=== PATIENT | female | born 1935 | race Caucasian/White ===

== ENCOUNTER 2019-04-17 09:15 | Observation (INO) ==
[2019-04-17] MEDS ORDERED: ASPIRIN 325 MG TABLET PO STA (09:34)
[2019-04-17 10:01] LABS: Basophils % 0.4 % (0.0-0.8); Eosinophils # 0.1 10*3/uL (0.0-0.87); Eosinophils % 1.5 % (0.00-10.9); Hematocrit 40.3 VOL% (35.7-47.0); Hemoglobin 13.2 GM/DL (12.0-16.0); Immature Granulocytes % 0.6 %; Immature Granulocytes Absolute 0.04 #; Lymphocytes # 1.4 10*3/uL (1.4-4.0); Lymphocytes % 21.2 % (21.3-54.2); Mean Corpuscular HGB Conc 32.8 GM/DL (32-36); Mean Corpuscular Volume 96.9 FL (87-102); Mean Platelet Volume 10.3 FL (9.6-12.0); Monocytes % 12.6 % (1.7-12.7); Neutrophils % 63.7 % (38.7-73.9); Platelet Count 283 T/CUMM (130-400); Red Blood Count 4.16 MC/CUMM (3.8-5.5); Red Cell Distribution Width 15.3 % (9.3-17.3); White Blood Count 6.7 T/CUMM (4-12)
[2019-04-17 10:29] LABS: Calcium 9.2 MG/DL (8.5-10.1); Osmolality,Calculated 283.3 MOS/KG (273-304)
[2019-04-17] MEDS ORDERED: diphenhydrAMINE CAP 25 MG CAPSULE PO PRN (11:23)
[2019-04-17] MEDS ORDERED: guaiFENesin/DM ER 600-30 MG TABLET PO PRN (11:23)
[2019-04-17] MEDS ORDERED: ONDANSETRON 4 MG/2 ML VIAL IV PRN (11:23)
[2019-04-17] MEDS ORDERED: PROMETHAZINE 25 MG/1 ML VIAL IM PRN (11:23)
[2019-04-17] MEDS ORDERED: ZALEPLON 5 MG CAPSULE PO PRN (11:23)
[2019-04-17] MEDS ORDERED: TEMAZEPAM 15 MG CAPSULE PO PRN (11:26)
[2019-04-17] MEDS ORDERED: hydrALAZINE 20 MG/1 ML VIAL IV STA (11:42)
[2019-04-17] MEDS: HEPARIN 5,000 UNIT/1 ML VIAL SUBCUT SCH ×2 (12:02→22:11)
[2019-04-17 14:15] LABS: Apearance,Urine Slightly Hazy (Clear); Bilirubin,Urine Negative (Negative); Blood, Urine Negative (Negative); Glucose,Urine (UA) Negative (Negative); Ketones,Urine Negative (Negative); Mucus,Urine Occasional /LPF (Occasional); Nitrite,Urine Negative (Negative); Protein,Urine Negative; RBC,Urine 2 /HPF (0-4); Renal Epithelial Cells,Urine Occasional /HPF (<1); Squamous Epithelial Cell,Urine Occasional /HPF (0-10); Urine Color Yellow (Yellow); Urine Specific Gravity 1.014 (1.001-1.035); Urine Urobilinogen < 2.0 EU/DL (0.2-1.0); WBC,Urine 15 /HPF (0-6)
[2019-04-17] MEDS ORDERED: cefTRIAXone 1,000 MG in SYRINGE 1 EACH IV SCH (16:30)
[2019-04-17] MEDS ORDERED: MAGNESIUM SULF RIDER 2 GM in PREMIX 1 EACH IV PRN ×2 (16:31)
[2019-04-17] MEDS ORDERED: MAGNESIUM SULF RIDER 4 GM in PREMIX 1 EACH IV PRN ×2 (16:31)
[2019-04-17 17:08] LABS: Troponin I < 0.015 NG/ML (0.00-0.045)
[2019-04-17] MEDS: BUDESONIDE 0.25 MG/2 ML NEB RESP TX SCH (19:02)
[2019-04-17 19:20] LABS: Troponin I < 0.015 NG/ML (0.00-0.045)
[2019-04-17] MEDS ORDERED: ATORVASTATIN 10 MG TABLET PO SCH (21:00)
[2019-04-17] MEDS ORDERED: amLODIPine 2.5 MG TABLET PO SCH (21:00)
[2019-04-17] MEDS: DOCUSATE SODIUM 100 MG CAPSULE PO SCH (22:14)
[2019-04-17] MEDS: GABAPENTIN 300 MG CAPSULE PO SCH (22:14)
[2019-04-18 04:51] LABS: Basophils # 0.1 10*3/uL (0.0-0.2); Basophils % 0.7 % (0.0-0.8); Eosinophils # 0.1 10*3/uL (0.0-0.87); Eosinophils % 1.4 % (0.00-10.9); Hematocrit 37.2 VOL% (35.7-47.0); Hemoglobin 12.1 GM/DL (12.0-16.0); Immature Granulocytes % 0.7 %; Immature Granulocytes Absolute 0.05 #; Lymphocytes % 27.3 % (21.3-54.2); Mean Corpuscular HGB Conc 32.5 GM/DL (32-36); Mean Corpuscular Volume 97.4 FL (87-102); Monocytes % 11.1 % (1.7-12.7); Neutrophils % 58.8 % (38.7-73.9); Platelet Count 266 T/CUMM (130-400); Red Blood Count 3.82 MC/CUMM (3.8-5.5); Red Cell Distribution Width 15.4 % (9.3-17.3); White Blood Count 7.2 T/CUMM (4-12)
[2019-04-18 05:26] LABS: Free T4 (Free Thyroxine) 1.15 NG/DL (0.76-1.46)
[2019-04-18 05:28] LABS: Alanine Aminotransferase 16 U/L (13-56); Alkaline Phosphatase 58 U/L (45-117); Aspartate Amino Transferase 17 U/L (0-37); Bilirubin,Total < 0.39 MG/DL (0.2-1.0); Blood Urea Nitrogen 19 MG/DL (7-18); Calcium 8.8 MG/DL (8.5-10.1); Glucose 107 MG/DL (74-106); HDL Cholesterol 38 MG/DL (40-60); Osmolality,Calculated 276.7 MOS/KG (273-304); Risk Ratio 4.55; Total Protein 6.4 G/DL (6.4-8.3); Triglycerides 258 MG/DL (2-150); VLDL CHOLESTEROL 51.6 MG/DL
[2019-04-18] MEDS: HEPARIN 5,000 UNIT/1 ML VIAL SUBCUT SCH ×2 (05:38→14:24)
[2019-04-18] MEDS: POTASSIUM CHLORIDE RIDER 10 MEQ in PREMIX 1 EACH IV PRN ×2 (05:53→11:52)
[2019-04-18] MEDS ORDERED: LEVOTHYROXINE 50 MCG TABLET PO SCH (06:30)
[2019-04-18] MEDS: BUDESONIDE 0.25 MG/2 ML NEB RESP TX SCH (07:39)
[2019-04-18] MEDS ORDERED: ALLOPURINOL 300 MG TABLET PO SCH (09:00)
[2019-04-18] MEDS ORDERED: PANTOPRAZOLE 40 MG TABLET PO SCH ×2 (09:00→21:00)
[2019-04-18] MEDS ORDERED: ASPIRIN EC 81 MG TABLET PO SCH (09:00)
[2019-04-18] MEDS ORDERED: hydroCHLOROthiazide 25 MG TABLET PO SCH (09:00)
[2019-04-18] MEDS ORDERED: ALBUTEROL/IPRATROPIUM 3 ML NEB RESP TX PRN (09:06)
[2019-04-18] MEDS ORDERED: methylPREDNISolone SOD SUC 40 MG/1 ML VIAL IV SCH (09:30)
[2019-04-18] MEDS ORDERED: MONTELUKAST 10 MG TABLET PO SCH (09:30)
[2019-04-18 11:50] VITALS: BP 152/89
[2019-04-18] MEDS: GABAPENTIN 300 MG CAPSULE PO SCH (11:52)
[2019-04-18] MEDS: DOCUSATE SODIUM 100 MG CAPSULE PO SCH (11:53)
[2019-04-18] MEDS ORDERED: ALBUTEROL/IPRATROPIUM 3 ML NEB RESP TX SCH (13:00)
== END 2019-04-18 15:38 | disposition home or self-care (01) ==
LOC: N.EDINP 09:15 → N.ED 09:15 → N.5E 13:39
PROVIDERS: ADMIT Internal Medicine; ATTEND Internal Medicine

== ENCOUNTER 2020-08-10 20:14 | Observation (INO) ==
[2020-08-10] MEDS ORDERED: ASPIRIN 325 MG TABLET PO STA (20:58)
[2020-08-10] MEDS ORDERED: ALBUTEROL/IPRATROPIUM 3 ML NEB RESP TX STA (20:58)
[2020-08-10] MEDS ORDERED: ONDANSETRON 4 MG/2 ML VIAL IV STA (20:58)
[2020-08-10] MEDS ORDERED: MORPHINE 4 MG/1 ML VIAL IV STA (20:58)
[2020-08-10] MEDS ORDERED: FUROSEMIDE 100 MG/10 ML VIAL IV STA (20:58)
[2020-08-10 21:00] LABS: Basophils % 0.5 % (0.0-0.8); Eosinophils # 0.1 10*3/uL (0.0-0.87); Eosinophils % 1.4 % (0.00-10.9); Hematocrit 36.6 VOL% (35.7-47.0); Hemoglobin 12.4 GM/DL (12.0-16.0); Immature Granulocytes % 1.2 %; Lymphocytes # 1.6 10*3/uL (1.4-4.0); Lymphocytes % 20.4 % (21.3-54.2); Mean Corpuscular HGB Conc 33.9 GM/DL (32-36); Mean Corpuscular Volume 92.2 FL (87-102); Mean Platelet Volume 9.5 FL (9.6-12.0); Monocytes % 8.5 % (1.7-12.7); Platelet Count 331 T/CUMM (130-400); Red Blood Count 3.97 MC/CUMM (3.8-5.5); Red Cell Distribution Width 14.7 % (9.3-17.3)
[2020-08-10 21:15] LABS: PT Patient Result 10.9 SECS (9.8-11.9)
[2020-08-10 21:24] LABS: Alanine Aminotransferase 23 U/L (13-56); Albumin 3.3 G/DL (3.4-5.0); Alkaline Phosphatase 73 U/L (45-117); Aspartate Amino Transferase 20 U/L (0-37); Bilirubin,Total < 0.39 MG/DL (0.2-1.0); Blood Urea Nitrogen 11 MG/DL (7-18); Estimated Glom Filtration Rate 60 ML/MIN; Glucose 159 MG/DL (74-106); Osmolality,Calculated 265.5 MOS/KG (273-304); Total Protein 7.2 G/DL (6.4-8.3)
[2020-08-10] MEDS ORDERED: MAGNESIUM SULF RIDER 2 GM in PREMIX 1 EACH IV STA (21:48)
[2020-08-10] MEDS ORDERED: POTASSIUM CHLORIDE 20 MEQ TABLET PO STA (22:47)
[2020-08-10 22:58] LABS: Bacteria,Urine Occasional /HPF (Few); Bilirubin,Urine Negative (Negative); Blood, Urine NEGATIVE (Negative); Glucose,Urine (UA) Negative (Negative); Ketones,Urine Negative (Negative); Nitrite,Urine Negative (Negative); Protein,Urine Negative; Squamous Epithelial Cell,Urine Occasional /HPF (0-10); Urine Appearance CLEAR (Clear); Urine Color Yellow (Yellow); Urine Specific Gravity 1.005 (1.001-1.035); Urine Urobilinogen 0.2 EU/DL (0.2-1.0); WBC,Urine 3 /HPF (0-6)
[2020-08-10 23:24] LABS: Free T4 (Free Thyroxine) 1.41 NG/DL (0.76-1.46); Thyroid Stimulating Hormone 10.4 uIU/ml (0.358-3.74)
[2020-08-11] MEDS ORDERED: ALBUTEROL/IPRATROPIUM 3 ML NEB RESP TX PRN (00:50)
[2020-08-11] MEDS ORDERED: ACETAMINOPHEN 325 MG TABLET PO PRN (00:50)
[2020-08-11] MEDS ORDERED: DOCUSATE SODIUM 100 MG CAPSULE PO PRN (00:50)
[2020-08-11] MEDS ORDERED: ONDANSETRON 4 MG/2 ML VIAL IV PRN (00:50)
[2020-08-11] MEDS ORDERED: POTASSIUM CHLORIDE 20 MEQ TABLET PO PRN (00:58)
[2020-08-11] MEDS ORDERED: MAGNESIUM SULF RIDER 2 GM in PREMIX 1 EACH IV PRN (00:58)
[2020-08-11] MEDS ORDERED: MAGNESIUM SULF RIDER 4 GM in PREMIX 1 EACH IV PRN (00:58)
[2020-08-11] MEDS ORDERED: ALUMINUM/MAGNES/SIMETH MAX STR 30 ML UDCUP PO PRN (01:16)
[2020-08-11] MEDS ORDERED: diphenhydrAMINE CAP 25 MG CAPSULE PO PRN (02:17)
[2020-08-11 06:12] LABS: Basophils % 0.6 % (0.0-0.8); Eosinophils # 0.1 10*3/uL (0.0-0.87); Eosinophils % 0.9 % (0.00-10.9); Hematocrit 34.2 VOL% (35.7-47.0); Hemoglobin 11.5 GM/DL (12.0-16.0); Immature Granulocytes % 0.6 %; Immature Granulocytes Absolute 0.04 #; Lymphocytes # 1.5 10*3/uL (1.4-4.0); Lymphocytes % 22.6 % (21.3-54.2); Mean Corpuscular HGB Conc 33.6 GM/DL (32-36); Mean Corpuscular Volume 93.4 FL (87-102); Mean Platelet Volume 9.3 FL (9.6-12.0); Monocytes % 10.5 % (1.7-12.7); Neutrophils % 64.8 % (38.7-73.9); Platelet Count 314 T/CUMM (130-400); Red Blood Count 3.66 MC/CUMM (3.8-5.5); Red Cell Distribution Width 14.7 % (9.3-17.3); White Blood Count 6.6 T/CUMM (4-12)
[2020-08-11 06:31] LABS: Calcium 8.4 MG/DL (8.5-10.1)
[2020-08-11] MEDS: ENOXAPARIN 40 MG/0.4 ML SYRINGE SUBCUT SCH (09:55)
[2020-08-11] MEDS: PANTOPRAZOLE 40 MG TABLET PO SCH (09:56)
[2020-08-11] MEDS: FUROSEMIDE 40 MG/4 ML VIAL IV SCH ×2 (09:56→16:55)
[2020-08-11] MEDS: LOSARTAN 25 MG TABLET PO SCH (09:59)
[2020-08-11] MEDS: ASPIRIN CHEW 81 MG TABLET PO SCH (09:59)
[2020-08-11] MEDS: ISOSORBIDE MONONITRATE 30 MG TABLET PO SCH (09:59)
[2020-08-11] MEDS: ATORVASTATIN 10 MG TABLET PO SCH (10:00)
[2020-08-11] MEDS ORDERED: oxyCODONE/ACETAMINOPHEN 5-325 MG TABLET PO PRN (20:11)
[2020-08-12] MEDS: FUROSEMIDE 40 MG/4 ML VIAL IV SCH (08:52)
[2020-08-12] MEDS: LOSARTAN 25 MG TABLET PO SCH (08:53)
[2020-08-12] MEDS: PANTOPRAZOLE 40 MG TABLET PO SCH (08:53)
[2020-08-12] MEDS: ASPIRIN CHEW 81 MG TABLET PO SCH (08:53)
[2020-08-12] MEDS: ENOXAPARIN 40 MG/0.4 ML SYRINGE SUBCUT SCH (08:53)
[2020-08-12] MEDS: ATORVASTATIN 10 MG TABLET PO SCH (08:53)
[2020-08-12] MEDS: ISOSORBIDE MONONITRATE 30 MG TABLET PO SCH (08:53)
[2020-08-12 11:59] VITALS: BP 139/75
== END 2020-08-12 14:08 | disposition home or self-care (01) ==
LOC: N.EDINP 20:14 → N.ED 20:14 → N.TELEN 08-11 00:38
PROVIDERS: ADMIT Internal Medicine; ATTEND Internal Medicine